=== PATIENT | male | born 1940 | race Caucasian/White ===

== ENCOUNTER 2016-11-19 17:24 | Inpatient (IN) | payer OTHER ==
[2016-11-19] MEDS ORDERED: ASPIRIN 81 MG CHEWABLE TAB PO ONE (17:34)
[2016-11-19] MEDS ORDERED: NS 500 ML IV ONE (17:34)
--- NOTE | 2016-11-19 17:34 | EDPHY ---
H & P Stated Complaint: CP + SOB since yest. HPI/ROS: HPI CHIEF COMPLAINT: Chest pain, shortness of breath HISTORY OF PRESENT ILLNESS: This patient very pleasant 75-year-old male significant past medical history for hypertension, hyperlipidemia, no significant history of coronary artery disease or underlying lung disease presents to the emergency room with 48 hours of dyspnea on exertion and profound shortness of breath. Patient then tells me that early this morning he developed a left-sided chest discomfort described as an achy sensation. After developing this achy sensation is left chest nonradiating with associated shortness of breath decided come to the emergency room. He does tell me that due to his shortness of breath he thought maybe he would benefit from Advair he took 2 different puffs of Advair which did not really help him. He does notice that he has had dyspnea on exertion especially when he goes to hike or walk. Tells me that he went for a short walk yesterday morning and had to stop multiple times to catch his breath. No history of PE or DVT. He tells me he has no significant leg swelling or calf tenderness. Currently upon arrival the emergency room he does complain of 4th 10 left- sided chest discomfort described as an achy sensation. Nonradiating. Past Medical History: Hypertension, hyperlipidemia Past Surgical History: Denies significant surgical history Social History: Denies daily use of drugs, alcohol, tobacco products Family History: Brother in IN ROS REVIEW OF SYSTEMS: A comprehensive 10 point review of systems is otherwise negative aside from elements mentioned in the history of present illness. Exam Constitutional triage nursing summary reviewed, vital signs reviewed, awake/ alert. Eyes normal conjunctivae and sclera, EOMI, PERRLA. HENT normal inspection, atraumatic, moist mucus membranes, no epistaxis, neck supple/ no meningismus, no raccoon eyes. Respiratory clear to auscultation bilaterally, normal breath sounds, no respiratory distress, no wheezing. Cardiovascular rate normal, regular rhythm, no murmur, no edema, distal pulses normal. Gastrointestinal soft, non-tender, no rebound, no guarding, normal bowel sounds, no distension, no pulsatile mass. Genitourinary no CVA tenderness. Musculoskeletal no midline vertebral tenderness, full range of motion, no calf swelling, no tenderness of extremities, no meningismus, good pulses, neurovascularly intact. Skin pink, warm, & dry, no rash, skin atraumatic. Neurologic awake, alert and oriented x 3, AAOx3, moves all 4 extremities equally, motor intact, sensory intact, CN II-XII intact, normal cerebellar, normal vision, normal speech. Psychiatric normal mood/affect. Heme/Lymph/Immune no lymphadenopathy. Differential diagnosis includes but is not limited to: ACS, atypical chest pain , pneumothorax, pneumonia, pulmonary embolism, aortic dissection, congestive heart failure, tumor, musculoskeletal pain, esophageal pain, GERD, peptic ulcer disease, pancreatitis Medical Decision Making: The patient had an IV established will obtain blood work, EKG will be performed, troponin, chest x-ray will be given full-dose aspirin, nitroglycerin to see if this improves his chest discomfort. D-dimer for rule out pulmonary embolism and chest x-ray. Re-evaluation: EKG interpretation by me on record in [facility] system. Impression time of EKG , this is sinus rhythm rate of 50, no acute ischemic changes specifically no ST elevation, ST depression, T-wave abnormality. No prolonged intervals, no signs of arrhythmia. Unremarkable EKG. ED x-ray chest one view: negative for acute cardiopulmonary disease. Specifically no focal infiltrate. 1853: Re-evaluation at this time is resting comfortably no complaints. Patient' s D-dimer is positive he is pending a CT angiogram of his chest. I did speak with the hospitalist service at this time Dr. Olivo who agrees to admit this patient for dyspnea on exertion, chest pain and shortness of breath. At this time of admission the patient is chest pain-free. CT scan of the Angiogram chest The results of the study are negative for pulmonary embolism The study was read by Dr. Ruiz I viewed the images myself on the PACS system. Source: Patient - Personal History Current Tetanus/Diphtheria Vaccine: Unsure Current Tetanus Diphtheria and Acellular Pertussis (TDAP): Unsure Tetanus Vaccine Date: unsure - Medical/Surgical History Hx Asthma: Yes Hx Chronic Respiratory Disease: No Hx Diabetes: No Hx Cardiac Disease: No Hx Renal Disease: No Hx Cirrhosis: No Hx Alcoholism: No Hx HIV/AIDS: No Hx Splenectomy or Spleen Trauma: No Other PMH: HTN. GERD. restless leg syndrome - Social History Smoking Status: Never smoked Constitutional: Initial Vital Signs Temperature (C) 36.8 C 11/19/16 17:26 Heart Rate 58 L 01/02/17 17:26 Respiratory Rate 14 11/19/16 17:26 Blood Pressure 154/79 H 11/19/16 17:26 O2 Sat (%) 95 11/19/16 17:26 O2 Delivery Mode Room Air O2 (L/minute) 2 Allergies/Adverse Reactions: No Known Allergies Allergy (Verified 04/22/16 16:50) Home Medications: Medication Instructions Recorded Escitalopram Oxalate [Lexapro 10 5 mg PO DAILY 09/22/13 MG] Omeprazole 20 mg PO DAILY 09/22/13 Pramipexole Di-HCl [Mirapex 0.25 0.25 mg PO HS 09/22/13 mg (*)] Aspirin EC [Aspirin EC 81 mg (*)] 81 mg PO DAILY 11/19/16 Atorvastatin Calcium [Lipitor 40 40 mg PO HS 11/19/16 mg (*)] Benazepril HCl [Lotensin] 40 mg PO HS 11/19/16 amLODIPine BESYLATE [Norvasc 10 mg 10 mg PO DAILY 11/19/16 (*)] Albuterol [Proventil Inhaler HFA 2 puffs IH Q4 PRN #0 mdi 11/21/16 (*)] Prasugrel HCl [Effient 10mg (*)] 10 mg PO DAILY #30 tab 11/21/16 Medical Decision Making - Data Points Laboratory Results: Laboratory Results 11/19/16 17:38 11/19/16 17:38 Medications Given: Discontinued Medications Amlodipine Besylate (Norvasc) 10 mg PO DAILY [facility] Stop: 05/19/17 08:59 Last Admin: 11/21/16 09:27 Dose: 10 mg Aspirin (Aspirin) 324 mg PO EDNOW ONE Stop: 11/19/16 17:35 Last Admin: 11/19/16 18:15 Dose: 324 mg Aspirin Buffered (Aspirin Ec) 81 mg PO DAILY JONATHAN Stop: 05/19/17 08:59 Last Admin: 11/21/16 09:36 Dose: 81 mg Aspirin Buffered (Aspirin Ec) 325 mg PO ONCALL ONE Stop: 11/20/16 10:14 Last Admin: 11/20/16 13:05 Dose: 325 mg Aspirin Buffered (Aspirin Ec) 325 mg PO ONCALL ONE Stop: 11/20/16 13:01 Last Admin: 11/20/16 17:02 Dose: Not Given Aspirin Buffered (Aspirin Ec) 325 mg PO DAILY [facility] Stop: 05/20/17 08:59 Last Admin: 11/21/16 09:31 Dose: Not Given Atorvastatin Calcium (Lipitor) 40 mg PO HS [facility] Stop: 05/18/17 20:59 Last Admin: 11/20/16 20:02 Dose: 40 mg Benazepril HCl (Lotensin) 40 mg PO HS [facility] Stop: 05/18/17 21:59 Last Admin: 11/20/16 20:02 Dose: 40 mg Diazepam (Valium) 5 mg PO ONCALL ONE Stop: 11/20/16 10:14 Last Admin: 11/20/16 13:05 Dose: 5 mg Diazepam (Valium) 5 mg PO ONCALL ONE Stop: 11/20/16 13:01 Last Admin: 11/20/16 17:02 Dose: Not Given Diphenhydramine HCl (Benadryl) 25 mg PO ONCALL ONE Stop: 11/20/16 10:14 Last Admin: 11/20/16 13:04 Dose: 25 mg Diphenhydramine HCl (Benadryl) 25 mg PO ONCALL ONE Stop: 11/20/16 13:01 Last Admin: 11/20/16 17:02 Dose: Not Given Escitalopram Oxalate (Lexapro) 5 mg PO DAILY [facility] Stop: 05/19/17 08:59 Last Admin: 11/21/16 09:27 Dose: 5 mg Famotidine (Pepcid) 20 mg PO ONCALL ONE Stop: 11/20/16 10:14 Last Admin: 11/20/16 13:05 Dose: 20 mg Famotidine (Pepcid) 20 mg PO ONCALL ONE Stop: 11/20/16 13:01 Last Admin: 11/20/16 17:02 Dose: Not Given Famotidine (Pepcid) 20 mg PO BID [facility] Stop: 05/19/17 20:59 Last Admin: 11/21/16 09:27 Dose: 20 mg Sodium Chloride (Ns) 500 mls @ 0 mls/hr IV ONCE ONE PRN Reason: As Directed Stop: 11/19/16 17:35 Last Admin: 11/19/16 18:20 Dose: 500 mls Dextrose/Sodium Chloride (D5w 1/2 Ns) 1,000 mls @ 125 mls/hr IV CONT JONATHAN Stop: 11/21/16 23:44 Last Admin: 11/21/16 04:58 Dose: 1,000 mls Nitroglycerin (Nitrostat) 0.4 mg SL EDNOW ONE Stop: 11/19/16 17:42 Last Admin: 11/19/16 18:24 Dose: 0.4 mg Pantoprazole Sodium (Protonix) 40 mg PO DAILY JONATHAN Stop: 05/19/17 08:59 Last Admin: 11/21/16 09:27 Dose: 40 mg Pramipexole Dihydrochloride (Mirapex) 0.25 mg PO TID JONATHAN Stop: 05/18/17 21:59 Last Admin: 11/19/16 20:00 Dose: 0.25 mg Pramipexole Dihydrochloride (Mirapex) 0.25 mg PO HS [facility] Stop: 05/19/17 20:59 Last Admin: 11/20/16 20:02 Dose: 0.25 mg Pramipexole Dihydrochloride (Mirapex) 0.25 mg PO ONCE ONE Stop: 11/20/16 16:31 Last Admin: 11/20/16 17:02 Dose: Not Given Prasugrel (Effient) 60 mg PO ONCE ONE Stop: 11/20/16 15:32 Last Admin: 11/20/16 17:03 Dose: Not Given Prasugrel (Effient) 10 mg PO DAILY [facility] Stop: 05/20/17 08:59 Last Admin: 11/21/16 09:28 Dose: 10 mg Departure - Departure Disposition: [facility] Acute Clinical Impression: Chest pain, Dyspnea Condition: Fair
[2016-11-19] MEDS ORDERED: NITROGLYCERIN 0.4 MG BTL SL ONE (17:41)
--- NOTE | 2016-11-19 17:45 | CPEKG ---
Heart Rate: 50 RR Interval: 1200 P-R Interval: 184 QRSD Interval: 94 QT Interval: 452 QTC Interval: 413 P [place]: 43 QRS [place]: -1 T Wave [place]: 56 EKG Severity - NORMAL ECG - EKG Impression: SINUS RHYTHM Electronically Signed By: Frandy Resendiz 19-Nov-2016 21:18:04
[2016-11-19 17:50] LABS: % IMMATURE GRANULYOCYTES 0.4 % (0.0-1.1); ABSOLUTE IMMATURE GRANULOCYTES 0.03 10^3/uL (0.00-0.10); ADD DIFF? NO; ADD MORPH? NO; ADD SCAN? NO; ATYPICAL LYMPHOCYTE FLAG 10 (0-99); FRAGMENT RBC FLAG 0 (0-99); HEMATOCRIT 43.8 % (40.0-51.0); HEMOGLOBIN 15.2 g/dL (13.7-17.5); LEFT SHIFT FLG 0 (0-99); LIPEMIA HEMOLYSIS FLAG 90 (0-99); MEAN CELL HEMOGLOBIN 32.3 pg (27.9-34.1); MEAN CELL HEMOGLOBIN CONCENTR. 34.7 g/dL (32.4-36.7); MEAN CELL VOLUME 93.2 fL (81.5-99.8); MEAN PLATELET VOLUME 9.1 fL (8.7-11.7); PLATELET CLUMPS FLAG 0 (0-99); PLATELET COUNT 223 10^3/uL (150-400); RED CELL DISTRIBUTION WIDTH 12.9 % (11.5-15.2)
[2016-11-19 17:58] LABS: INR 1.06 (0.83-1.16); PROTIME(PATIENT) 13.7 SEC (12.0-15.0)
[2016-11-19 18:03] LABS: ALANINE AMINOTRANSFERASE 40 IU/L (21-72); ALBUMIN 4.6 g/dL (3.5-5.0); ALKALINE PHOSPHATASE 75 IU/L (38-126); ANION GAP 11 mEq/L (8-16); ASPARTATE AMINOTRANSFERASE 29 IU/L (17-59); BILIRUBIN-CONJUGATED 0.5 mg/dL (0.0-0.5); BILIRUBIN-UNCONJUGATED 0.5 mg/dL (0.0-1.1); CALCIUM 9.2 mg/dL (8.5-10.4); CARBON DIOXIDE 28 mEq/l (22-31); CHLORIDE 102 mEq/L (97-110); CREATININE 0.8 mg/dL (0.7-1.3); GLOMERULAR FILTRATION RATE > 60; GLUCOSE 89 mg/dL (70-100); POTASSIUM 3.9 mEq/L (3.5-5.2); SODIUM 141 mEq/L (134-144); TOTAL PROTEIN 7.1 g/dL (6.3-8.2)
--- NOTE | 2016-11-19 18:13 | DX ---
Portable chest x-ray 1754 hours. History: Chest pain with shortness of breath. Findings: Comparison to January 19, 2015 CT study. Comparison to chest x-ray from November 16, 2014. Heart size remains borderline enlarged. Pulmonary vasculature is mildly prominent centrally similar t o the prior study. There is mild elevation left hemidiaphragm. This is stable to the prior CT study. There is mild compressive atelectatic change at the left lung base. There is no new consolidation, ef fusion, or pneumothorax. Osseous structures are unchanged. Impression: 1. Mild elevation left hemidiaphragm with compressive atelectatic change left base. 2. No active cardio pulmonary disease seen.
[2016-11-19 18:15] LABS: CREATINE KINASE-MB FRACTION 2.12 ng/mL (0-3.19); TROPONIN I 0.016 ng/mL (0-0.034)
[2016-11-19] MEDS ORDERED: IOPAMIDOL (ISOVUE 370) 100 ML BTL IV ONE (19:10)
--- NOTE | 2016-11-19 20:09 | CT ---
CT Pulmonary Angiogram 1924 hours Clinical Indications: Chest pain with shortness of breath. Positive d-dimer paired rule out pulmonary embolus. Technique: Thinly collimated multidetector helical CT imaging was performed through the chest while 75 mL Isovue-370 were injected intravenously without complication. The images were reconstructed in multiple planes. Dose reduction techniques were utilized. Findings: Comparison to prior CT study from January 19, 2015. CT Angiogram: There is no evidence of intraluminal thrombus within the pulmonary arterial system. Th e thoracic aorta has a normal contour without evidence of aneurysm or dissection. There are some sca ttered arteriosclerotic calcified plaques at the aortic arch level. Arteriosclerotic calcified plaque s are also seen associated with the coronary arteries. The cardiac chambers are mildly enlarged. Ther e is no pericardial effusion. CT Chest: The lungs are clear without infiltrate or effusion. There are no pulmonary nodules. There is stable mild elevation of left hemidiaphragm with adjacent compressive atelectatic change at the le ft lung base. Soft tissues are unremarkable. The visualized upper abdominal structures are unremark able during arterial phase of imaging. Skeletal system: Vertebral body heights are well-maintained. There are no lytic or sclerotic osseous lesions. Hypertrophic calcifications are seen along the anterior and right lateral aspect of mid to l ower thoracic spine vertebral body segments compatible with underlying diffuse idiopathic skeletal hy perostosis (DISH). Impression: 1. No evidence of pulmonary embolus using CT protocol. 2. Arteriosclerotic calcifications associated with the coronary arteries and aortic arch. 3. Mild cardiomegaly. 4. DISH mid to lower thoracic spine. These findings were discussed by telephone with Dr. Frandy Resendiz at 2007 hrs.
[2016-11-19] MEDS ORDERED: ACETAMINOPHEN 325 MG TAB PO PRN (20:16)
[2016-11-19] MEDS ORDERED: ONDANSETRON DISINTEGRATING 4 MG TAB PO PRN (20:16)
[2016-11-19] MEDS ORDERED: NITROGLYCERIN 0.4 MG BTL SL PRN (20:16)
--- NOTE | 2016-11-19 21:20 | GHP ---
[f rep st] HISTORY AND PHYSICAL DATE OF ADMISSION: 11/19/2016 CHIEF COMPLAINT: Shortness of breath. HISTORY OF PRESENT ILLNESS: The patient is a 75-year-old man with a history of hypertension and dysl ipidemia, who comes in with increasing dyspnea on exertion. He had similar symptoms about a year ago and was seen by Dr. Gar. At that time, a nuclear stress test and echocardiogram were done that were fairly unremarkable. He was then referred to Dr. Bryson Venegas, who diagnosed him with asthma an d prescribed Advair and albuterol inhaler. He has not really been consistent in taking the inhalers. In fact, he has not taken the Advair at all. About 2 weeks ago, he started noting increasing short ness of breath and dyspnea on exertion. He noticed it mostly when he walked up 1 flight of stairs, w hich was unusual for him, and walking outside. He said, yesterday he walked about a mile and a half with his and had to stop 4 times to catch his breath, which was unusual for him. He also noted that he got some chest soreness on the left side of his ribcage that was not necessarily associated w ith exertion. It did not radiate. It was not associated with dizziness, diaphoresis, palpitations, or nausea. This morning, he was walking about 100 yards and had to rest several times and continued to have the chest soreness, so he opted to come into the emergency room after consulting with his latrice saniya who is a local electrophysiology nurse practitioner in [facility]. He did start taking his Advair last night, and then took it last night and this morning and did not notice any difference. He does take the albuterol as needed and takes it almost on a daily basis. He says he takes it before he goes to the gym, in which case h obed rides a stationary bike about 3 days a week, and has not noted significant increasing dyspnea on ex ertion with that activity. He has had a little bit of swelling and was recently started on spironola ctone, but developed some gynecomastia, so stopped that about a month ago. He denies any recent weig ht changes, fevers, chills, or illnesses. REVIEW OF SYSTEMS: A 10-point review of systems was done and is negative except as stated in HPI. PAST MEDICAL HISTORY: 1. Hypertension. 2. Dyslipidemia. 3. Reactive airways disease. 4. GE reflux disease. 5. Obstructive sleep apnea, on CPAP. 6. Restless legs. PAST SURGICAL HISTORY: Includes a right total knee replacement and left ankle surgery x2. CURRENT MEDICATIONS: Include Lipitor 40 mg, Norvasc 10 mg, omeprazole 20 mg, Mirapex 0.25 at night, benazepril 40 mg, Advair, and Proair. ALLERGIES: No known drug allergies. SOCIAL HISTORY: He is . He has 3 kids. He does not smoke and occasionally drinks beer. FAMILY HISTORY: Mother had heart failure. Father and most of the father's side of the family had [facility]. He had a brother who had an KS 5 years ago and, prior to that, had stents placed; he eventual ly from pancreatic cancer. A sister who is relatively healthy. PHYSICAL EXAMINATION: VITAL SIGNS: He is afebrile. Heart rate 51, blood pressure 144/90, respirati ons 14. HE is 92% on room air. GENERAL: He is a well-developed, well-nourished 75-year-old. He is in no distress. He is alert and oriented. Speech is clear and fluent. HEENT: Pupils equal, roun d, and reactive. Extraocular movements intact. Mucous membranes moist. Oropharynx clear. NECK: S upple. No adenopathy. No carotid bruits. HEART: Regular rate and rhythm. No murmur, gallop or ru b. LUNGS: Clear to auscultation. Slightly diminished breath sounds bilaterally, but no wheeze, rho nchi or rub. ABDOMEN: Soft, nontender, nondistended. No masses. EXTREMITIES: Trace edema bilater ally. No clubbing or cyanosis. MUSCULOSKELETAL: No joint deformities, except on his left ankle. N EUROLOGIC: Intact. SKIN: Intact. No rash. LABORATORY DATA: CBC and chemistries are all within normal limits. D-dimer slightly elevated at 1.8 . LFTs are normal. BNP is negative, and troponin is negative. Chest x-ray, personally reviewed and interpreted, was normal. Electrocardiogram, personally reviewed and interpreted, shows bradycardia. Chest and thoracic CT angiogram shows no evidence of PE, but atherosclerotic calcifications associat ed with the coronary arteries and aortic arch. ASSESSMENT AND PLAN: 75-year-old with hypertension, dyslipidemia, and some calcifications noted in h is coronary arteries, is admitted with increasing dyspnea on exertion and some chest discomfort. EKG and troponins are negative for ischemia. 1. Dyspnea on exertion/chest pressure. Patient has had a recent workup with Dr. Jean-Paul Gar of [facility], including a nuclear stress test and echocardiogram that apparently were unreveal ing. However, I did discuss the case in detail with Dr. Dawood Gar, who will see him in the a.m.; h e requests we keep him n.p.o. after midnight for possible procedure depending on his course overnight , and he will decide on further evaluation in the a.m. 2. Hypertension, slightly elevated here. We will continue his usual medications and monitor. 3. Dyslipidemia, on atorvastatin. 4. History of reactive airways disease. Has seen Dr. Bryson Venegas and is on Advair and albuterol; w ill continue those. 5. Gastroesophageal reflux disease, on Prilosec. 6. Obstructive sleep apnea, on CPAP. 7. Deep venous thrombosis prophylaxis. Patient is under observation status and, if he has an extend ed stay, we will start him on low-molecular weight heparin at that point. /[id number]/MODL
[2016-11-19] MEDS ORDERED: PRAMIPEXOLE 0.25 MG TAB PO SCH (22:00)
--- NOTE | 2016-11-19 22:23 | CPEKG ---
Heart Rate: 52 RR Interval: 1154 P-R Interval: 196 QRSD Interval: 94 QT Interval: 452 QTC Interval: 421 P [place]: 49 QRS [place]: 5 T Wave [place]: 63 EKG Severity - NORMAL ECG - EKG Impression: SINUS RHYTHM Electronically Signed By: David Bah 19-Nov-2016 23:07:54
[2016-11-19] MEDS: ATORVASTATIN CALCIUM 40 MG TAB PO SCH (22:47)
[2016-11-19] MEDS: BENAZEPRIL HCL 20 MG TAB PO SCH (22:47)
[2016-11-20] MEDS: PANTOPRAZOLE SODIUM 40 MG TAB PO SCH (08:26)
[2016-11-20] MEDS: ESCITALOPRAM OXALATE 10 MG TAB PO SCH (08:26)
[2016-11-20] MEDS: ASPIRIN EC 81 MG TAB PO SCH (08:28)
--- NOTE | 2016-11-20 08:56 | CPEKG ---
Heart Rate: 42 RR Interval: 1429 P-R Interval: 200 QRSD Interval: 94 QT Interval: 508 QTC Interval: 425 P [place]: 44 QRS [place]: 22 T Wave [place]: 49 EKG Severity - OTHERWISE NORMAL ECG - EKG Impression: SINUS BRADYCARDIA Electronically Signed By: Florencio Weston 20-Nov-2016 21:15:56
--- NOTE | 2016-11-20 09:13 | CPEKG ---
Heart Rate: 52 RR Interval: 1154 P-R Interval: 196 QRSD Interval: 94 QT Interval: 440 QTC Interval: 410 P [place]: 9 QRS [place]: 55 T Wave [place]: -20 EKG Severity - BORDERLINE ECG - EKG Impression: SINUS RHYTHM Electronically Signed By: Florencio Weston 20-Nov-2016 21:16:20
[2016-11-20] MEDS ORDERED: diphenhydrAMINE 25 MG CAP PO ONE ×2 (10:13→13:00)
[2016-11-20] MEDS ORDERED: DIAZEPAM 5 MG TAB PO ONE ×2 (10:13→13:00)
[2016-11-20] MEDS ORDERED: TEMAZEPAM 15 MG CAP PO PRN ×2 (10:13→15:31)
[2016-11-20] MEDS ORDERED: FAMOTIDINE 20 MG TAB PO ONE ×2 (10:13→13:00)
[2016-11-20] MEDS ORDERED: ACETAMINOPHEN 325 MG TAB PO PRN (10:13)
[2016-11-20] MEDS ORDERED: ASPIRIN EC 325 MG TAB PO ONE ×2 (10:13→13:00)
[2016-11-20] MEDS ORDERED: NITROGLYCERIN 0.4 MG BTL SL PRN ×2 (10:13→15:31)
--- NOTE | 2016-11-20 10:28 | PDCARCONS ---
Cardiology Consult Reason for Consult: Progressive dyspnea on exertion and chest pain Chief Complaint: Progressive shortness of breath and chest pain Requesting Physician: Dr. Brenda Olivo History of Present Illness: 75 y/o M well known to our practice with known CAD by Ca score, HTN, hyperlipidemia, strong family history of CAD, history of non-sustained VT who presented to ED yesterday with 2 weeks of progressive dyspnea on exertion and new onset of left-sided chest discomfort. He has developed limiting dyspnea with one flight of stairs and now cannot walk more than 100 yards without having to stop. These symptoms are worse than his previous complaints of dyspnea back in August 2014. In the interim he had been diagnosed with asthma and prescribed daily Advair which he never really took. He has restarted his Advair as of 2 days ago with no improvement in his symptoms. He does use an albuterol inhaler almost daily and before exercise which thinks improves his symptoms slightly. He does not have shortness of breath at rest. Starting two days ago he developed a left-sided chest "soreness" without radiation or associated lightheadedness, nausea, or diaphoresis. It does not seem to be related to exertion and had been relatively constant until it resolved yesterday afternoon. He has been followed closely in our office for risk factor management. He states that his BP has been mostly well-controlled on his current medication regimen. He underwent nuclear stress testing and echocardiogram in May 2016 that were unremarkable. Laboratory studies this admission are unremarkable. D-dimer was positive with subsequent chest CTA negative for pulmonary embolic disease. 12 lead EKGs are non-acute. Troponins are negative x 3. BNP is stable at 490. HRs have consistently been in the 40s bpm with frequent PVCs, no pauses. Prior ambulatory EKG monitors from 2 years ago show average HRs in the mid to high 50s bpm. We are asked to consult on Mr. Newberry to assess his symptoms and recommend further diagnostic testing regarding his newly worsening shortness of breath and chest discomfort. History Information - Allergies/Home Medication List Allergies/Adverse Reactions: No Known Allergies Allergy (Verified 04/22/16 16:50) Home Medications: Escitalopram Oxalate [Lexapro 10 MG (RX)] 5 mg PO DAILY 09/22/13 [Last Taken 01/04] Omeprazole 20 mg PO DAILY 09/22/13 [Last Taken 11/19/16] Pramipexole Di-HCl [Mirapex 0.25 mg (RX)] 0.25 mg PO HS 09/22/13 [Last Taken 12/04] Aspirin EC [Aspirin EC 81 mg (*)] 81 mg PO DAILY 11/19/16 [Last Taken 11/19/16] Atorvastatin Calcium [Lipitor 40 mg (*)] 40 mg PO HS 11/19/16 [Last Taken ] Benazepril HCl [Lotensin] 40 mg PO HS 11/19/16 [Last Taken 11/18/16] amLODIPine BESYLATE [Norvasc 10 mg (*)] 10 mg PO DAILY 11/19/16 [Last Taken 01/04] I have personally reviewed and updated: family history, medical history Past Medical History: See assessement - Past Medical History coronary artery disease, hypertension, hyperlipidemia - Surgical History Reports: no pertinent surgical hx - Family History Positive for: CAD - Social History Smoking Status: Never smoked Drug Use: None Cardiac History - Cardiac History Past Cardiac History: CAD, OTHER (non-sustained VT) Cardiac Risk Factors: hypertension (>140/90), lipidemia, family history of premature CAD, age > 65, male Physical Exam Temp Pulse Resp BP Pulse Ox 36.6 C 47 L 18 150/81 H 94 11/20/16 08:12 11/20/16 08:12 11/20/16 08:12 11/20/16 08:28 11/20/16 08:36 O2 (L/minute) 2 Constitutional: no apparent distress, appears nourished, not in pain Cardiovascular: regular rate and rhythym, no murmur, rub, or gallop, No edema Peripheral Pulses: 1+: dorsalis-pedis (R), dorsalis-pedis (L) Respiratory: no respiratory distress, no rales or rhonchi, clear to auscultation Gastrointestinal: normoactive bowel sounds, soft, non-tender abdomen, no palpable masses Neurologic: AAOx3, sensation intact bilaterally, CN II-XII Intact Psychiatric: interacting appropriately, not anxious, not encephalopathic, thought process linear Lab and Imaging 11/19/16 17:38 11/19/16 17:38 WBC 7.76 10^3/uL (3.80-9.50) 11/19/16 17:38 RBC 4.70 10^6/uL (4.40-6.38) 11/19/16 17:38 Hgb 15.2 g/dL (13.7-17.5) 11/19/16 17:38 Hct 43.8 % (40.0-51.0) 11/19/16 17:38 MCV 93.2 fL (81.5-99.8) 11/19/16 17:38 MCH 32.3 pg (27.9-34.1) 11/19/16 17:38 MCHC 34.7 g/dL (32.4-36.7) 11/19/16 17:38 RDW 12.9 % (11.5-15.2) 11/19/16 17:38 Plt Count 223 10^3/uL (150-400) 11/19/16 17:38 MPV 9.1 fL (8.7-11.7) 11/19/16 17:38 Neut % (Auto) 57.7 % (39.3-74.2) 11/19/16 17:38 Lymph % (Auto) 26.4 % (15.0-45.0) 11/19/16 17:38 [place] % (Auto) 11.0 % (4.5-13.0) 11/19/16 17:38 Eos % (Auto) 4.4 % (0.6-7.6) 11/19/16 17:38 Baso % (Auto) 0.1 % (0.3-1.7) L 11/19/16 17: Nucleat RBC Rel Count 0.0 % (0.0-0.2) 11/19/16 17:38 Absolute Neuts (auto) 4.48 10^3/uL (1.70-6.50) 11/19/16 17:38 Absolute Lymphs (auto) 2.05 10^3/uL (1.00-3.00) 11/19/16 17:38 Absolute Monos (auto) 0.85 10^3/uL (0.30-0.80) H 11/19/16 17:38 Absolute Eos (auto) 0.34 10^3/uL (0.03-0.40) 11/19/16 17:38 Absolute Basos (auto) 0.01 10^3/uL (0.02-0.10) L 11/19/16 17:38 Absolute Nucleated RBC 0.00 10^3/uL (0-0.01) 11/19/16 17:38 Immature Gran % 0.4 % (0.0-1.1) 11/19/16 17:38 Immature Gran # 0.03 10^3/uL (0.00-0.10) 11/19/16 17:38 PT 13.7 SEC (12.0-15.0) 11/19/16 17:38 INR 1.06 (0.83-1.16) 11/19/16 17:38 APTT 31.0 SEC (23.0-38.0) 11/19/16 17:38 D-Dimer 1.80 ug/mLFEU (0.00-0.50) H 11/19/16 17:38 Sodium 141 mEq/L (134-144) 11/19/16 17:38 Potassium 3.9 mEq/L (3.5-5.2) 11/19/16 17:38 Chloride 102 mEq/L (97-110) 11/19/16 17:38 Carbon Dioxide 28 mEq/l (22-31) 11/19/16 17:38 Anion Gap 11 mEq/L (8-16) 11/19/16 17:38 BUN 20 mg/dL (7-23) 11/19/16 17:38 Creatinine 0.8 mg/dL (0.7-1.3) 11/19/16 17:38 Estimated GFR > 60 11/19/16 17:38 Glucose 89 mg/dL (70-100) 11/19/16 17:38 Calcium 9.2 mg/dL (8.5-10.4) 11/19/16 17:38 Magnesium 2.0 mg/dL (1.6-2.3) 11/19/16 17:38 Total Bilirubin 1.0 mg/dL (0.1-1.4) 11/19/16 17:38 Conjugated Bilirubin 0.5 mg/dL (0.0-0.5) 11/19/16 17:38 Unconjugated Bilirubin 0.5 mg/dL (0.0-1.1) 11/19/16 17:38 AST 29 IU/L (17-59) 11/19/16 17:38 ALT 40 IU/L (21-72) 11/19/16 17:38 Alkaline Phosphatase 75 IU/L (38-126) 11/19/16 17:38 Creatine Kinase 89 IU/L (0-224) 11/19/16 17:38 CK-MB (CK-2) Fraction 2.12 ng/mL (0-3.19) 11/19/16 17:38 Troponin I 0.022 ng/mL (0-0.034) 11/20/16 08:59 NT-Pro-B Natriuret Pep 490 pg/mL (0-125) H 11/19/16 17:38 Total Protein 7.1 g/dL (6.3-8.2) 11/19/16 17:38 Albumin 4.6 g/dL (3.5-5.0) 11/19/16 17:38 Lipase 43.0 IU/L (23-300) 11/19/16 17:38 A/P Assessment: 1. Progressive and limiting dyspnea on exertion. He has a history of these symptoms in 2013 with untelling outpatient cardiac workup. Recent nuclear imaging and echocardiography from May 2016 were untelling as well. Due to known CAD, history of VT, multiple cardiovascular risk factors there is high suspicion for unstable angina. 2. Positive D-dimer and negative CT angiogram for PE. 3. Known CAD by Ca score. Troponins are negative x 3. 4. Sinus bradycardia, persistently in the 40s bpm. This appears to be progressive as well c/t prior ambulatory EKG monitors. He is not on av girma blockers. He was able to reach a max HR of 138 bpm on his stress test this past summer. 5. Suboptimally controlled HTN on current medication regimen. 6. Hyperlipidemia treated w/ atorvastatin 40 mg/d. 7. Family history of CAD/MO in brother. 8. History of non-sustained VT. 9. Asthma followed by Dr. Bryson Venegas. 10. AI treated w/ CPAP. Plan: 1. Keep NPO. 2. Right and left heart catheterization this afternoon with Dr. Gar. Risks, benefits, and alternative workup discussed. 3. Check TSH due to persistent bradycardia and shortness of breath. 4. If cath is untelling consider repeating workup for chronotropic incompetence.
[2016-11-20 11:06] LABS: CHOLESTEROL 140 mg/dL (140-220); CHOLESTEROL/HDL RATIO 2.26 RATIO (1.00-4.97); HIGH DENSITY LIPOPROTEIN 62 mg/dL (40-65); LDL/HDL RATIO 1.15 RATIO (1.00-3.64); LOW DENSITY LIPOPROTEIN 71 mg/dL (80-100); NON-HIGH DENSITY LIPOPROTEIN 78 mg/dL (90-129); TRIGLYCERIDE 37 mg/dL (40-150); VERY LOW DENSITY LIPOPROTEINS 7 mg/dL (8-25)
[2016-11-20] MEDS ORDERED: LIDOCAINE 1% 30 ML SDV ONE (13:30)
[2016-11-20] MEDS ORDERED: MIDAZOLAM 2 MG/2 ML VIAL ONE ×2 (13:30→14:58)
[2016-11-20] MEDS ORDERED: fentaNYL 100 MCG/2 ML INJ ONE ×2 (13:30→15:18)
[2016-11-20] MEDS ORDERED: IOPAMIDOL (ISOVUE 370) 100 ML BTL IV ONE ×2 (13:31→14:53)
[2016-11-20] MEDS ORDERED: VERAPAMIL 5 MG/2 ML VIAL ONE ×2 (13:31→14:40)
[2016-11-20] MEDS ORDERED: HEPARIN 10,000 UNIT/10 ML MDV ONE (13:31)
--- NOTE | 2016-11-20 14:24 | SUROPNOTE ---
[facility] Operative Report - Surgery Date of Procedure: 11/20/2016 Indication: This patient is a 75 year old man, with known coronary artery disease by calcium score, hypertension, hyperlipidemia, strong family history of coronary disease, history of nonsustained VT, asthma, and AI on CPAP, presenting with two weeks of quickly progressive and limiting dyspnea on exertion, as well as new onset left-sided chest discomfort two days ago which occurred at rest. Due to known CAD, multiple risk factors, and history of VT, these symptoms are concerning for unstable angina. Right/left heart catheterization indicated secondary to [place] cardiovascular class IV angina. Procedures performed: 1. Right and Left heart catheterization with left ventricular and selective coronary angiography. 2. Intravascular ultrasound imaging, balloon angioplasty for pre-dilation, and intracoronary stent placement x1 in the right coronary artery. Description of procedure: Description, risks, benefits and alternatives were discussed in detail. Informed consent was obtained. The patient was brought to the catheterization laboratory where a timeout was performed. The right arm was sterilely prepped and draped. 2% lidocaine utilized for local anesthetic. A 5-Haitian hemostatic sheath was placed in the right brachial vein utilizing the IV site already present. A 5-Haitian PWP catheter was utilized for right heart catheterization. Following the right heart catheterization, a5/6-Haitian slender hemostatic sheath placed right radial artery utilizing micropuncture technique. Intraarterial verapamil and intravenous heparin was administered. Diagnostic coronary angiography performed with 6-Haitian, Lilly left-3.5 and Lilly right -4 catheter. All catheters were passed over a 0.035 guidewire. Pigtail catheter was then utilized for left heart catheterization and left ventricular angiography. There appears to be an 80% hazy appearing eccentric lesion in the proximal right coronary artery by angiography. Plan to perform intravascular ultrasound imaging in the right coronary artery. A 6-Haitian Lilly right-4 guide catheter was utilized to engage the right coronary artery. A short [place] J was placed in the right coronary artery across the lesion. Ultrasound catheter was placed, however catheter would initially not cross the lesion. A 0.014in x 190cm [place] straight tip guidewire was utilized as a "art wire" to help guide the ultrasound catheter. Intravascular ultrasound imaging was performed to assess lesion length, and reference vessel diameter. This demonstrated a heavily calcified, eccentric 75% stenosis in the proximal right coronary artery. Intracoronary nitroglycerin and verapamil was administered. The [place] wire was utilized for the percutaneous intervention. A 3.5mm x 12mm Emerge balloon was positioned in the proximal right coronary artery for pre-dilation, inflated to 14 atmospheres. A 4.0mm x 20mm Synergy drug-eluding stent was carefully positioned to cover the proximal lesion. This was deployed to 18 atmospheres. A 4.5mm x 12mm [place] Emerge balloon was utilized for high-pressure post-dilation, however could not appropriately maneuver into the correct position. Instead a 4.5mm x 8mm Coleman balloon was utilized for 3 inflations to a maximum of 13 atmospheres. Further intracoronary nitroglycerin and verapamil was administered. Repeat intravascular ultrasound imaging was attempted, however ultrasound catheter would not cross due to extreme tortuosity and angle. There was excellent result confirmed by angiography, with 0% residual stenosis. Arterial sheath was removed and TR band was placed. Venous sheath was removed in the CVC. Findings: 1. Hemodynamics: Right atrial pressure mean of 7, right ventricular pressure 54 /6/13 end-diastolic, pulmonary artery pressure 52/15, mean of 30, pulmonary capillary wedge pressure mean of 15 with no significant V wave. Aortic pressure 160/86, mean of 114, left ventricular pressure 150/8/20 end-diastolic. There was no pull back gradient across the aortic valve. 2. Saturations: Superior vena cava 82.6%, main pulmonary artery 70.4%, Ao 91.9% . Assumed [place] cardiac output 4.8 L/min with cardiac index of 2.4L/min/m2. 2. Left ventricle: The left ventricle appears normal in size. Left ventricle is normal shape. Segmental wall motion is normal with an ejection fraction of 55 %. There are no filling defects or significant mitral regurgitation. The aortic root and ascending aorta appears normal, there is no dissection or aneurysm formation. 3. Coronary angiography: Left main: The left main is a very large diameter, very short bifurcating vessel, free of disease. 4. Left anterior descending: This is a moderately large vessel continuing around the apex. There is a moderate size first diagonal branch, a moderately large bifurcating second diagonal branch, and a small third diagonal branch. The LAD has mid 30% luminal irregularities and a distal tubular 50% stenosis with mild systolic compression. 5. Circumflex: The circumflex is a co-dominant vessel. There is a moderate first obtuse marginal branch, small second obtuse marginal branch, and a large posterolateral branch. The circumflex contains 20% luminal irregularities, no significant stenoses. 6. Right coronary: Large co-dominant vessel. Large posterior descending artery. The proximal right coronary artery contains an 80% hazy appearing eccentric lesion by angiography. By intravascular ultrasound imaging, this is a heavily calcified lesion (360 degrees), with eccentric 75% stenosis. 7. Percutaneous intervention. Guided by intravascular ultrasound imaging and angiography, the proximal right coronary heavily calcified 75% eccentric stenosis was treated with balloon angioplasty pre-dilation, intracoronary stent placement x1, and high pressure post-dilation, with excellent result confirmed by angiography. Overall Impression: 1. Moderate pulmonary hypertension and elevated resting right heart hemodynamics. 2. 75% eccentric heavily calcified stenosis in the proximal right coronary artery, treated with balloon angioplasty pre-dilation, intracoronary stent placement x1, and high pressure post-dilation, with excellent result confirmed by angiography. 3. Otherwise mild-moderate coronary artery disease. 4. Normal left ventricular systolic function with ejection fraction of 55%. Plan: 1. Dual anti-platelet therapy. Will start with Effient and aspirin. 2. Plavix genetic testing. 3. High dose statin therapy and aggressive risk modification. 4. Follow up with Dr. Bryson Venegas for evaluation of pulmonary hypertension and evaluate treatment of the patient's asthma and obstructive sleep apnea. 5. Consider repeat high-resolution chest CT. 6. Close clinical follow up. Portions of this chart were entered by a scribe. I have reviewed this chart and agree with the documentation. Report scribed for Dr. Dalton Gar. Report scribed by Amber Toro.
[2016-11-20] MEDS ORDERED: NITROGLYCERIN 1,500 MCG/15 ML VIAL MISC ONE (14:40)
[2016-11-20] MEDS ORDERED: PRASUGREL HCL 10 MG TAB ONE (15:09)
[2016-11-20] MEDS ORDERED: OXYCODONE/APAP 5/325 TAB PO PRN (15:31)
[2016-11-20] MEDS ORDERED: HYDROCODONE/APAP 5/325 TAB PO PRN (15:31)
[2016-11-20] MEDS ORDERED: ATROPINE SULFATE 1 MG/10 ML SYR IVP PRN (15:31)
[2016-11-20] MEDS ORDERED: PRASUGREL HCL 10 MG TAB PO ONE (15:31)
[2016-11-20] MEDS ORDERED: ONDANSETRON 4 MG/2 ML VIAL IVP PRN (15:31)
[2016-11-20] MEDS ORDERED: LORazepam 2 MG/ML INJ IVP PRN (15:31)
--- NOTE | 2016-11-20 15:56 | CPEKG ---
Heart Rate: 57 RR Interval: 1053 P-R Interval: 184 QRSD Interval: 96 QT Interval: 448 QTC Interval: 437 P [place]: 45 QRS [place]: 13 T Wave [place]: 46 EKG Severity - ABNORMAL ECG - EKG Impression: SINUS RHYTHM EKG Impression: PAC AND PVC NOTED Electronically Signed By: Florencio Weston 20-Nov-2016 21:15:46
--- NOTE | 2016-11-20 16:24 | HOSPPROG ---
Hospitalist Progress Note Assessment/Plan: 75 y/o male new to my care presenting with Dyspnea on exertion found to have #CAD prox right coronary artery treated with drug eluding stent #pulm hypertension #htn #dyslipidemia #h/o reactive airway disease #AI #GERD Plan continue post cath care per cards asa/plavix out pt followup with pulm to further address pulm htn dispo: change to inpatient status given pci showing cad requiring stent Subjective: no chest pain or sob Objective: Vital Signs Temp Pulse Resp BP Pulse Ox 36.6 C 49 L 18 148/76 H 95 11/20/16 08:12 11/20/16 11:18 11/20/16 11:18 11/20/16 11:18 11/20/16 11:18 11/19/16 11/20/16 11/21/16 05:59 05:59 05:59 Intake Total 500 Balance 500 PT 13.7 SEC (12.0-15.0) 11/19/16 17:38 INR 1.06 (0.83-1.16) 11/19/16 17:38 - Physical Exam Constitutional: no apparent distress, appears nourished, not in pain Cardiovascular: regular rate and rhythym, no murmur, rub, or gallop Respiratory: no respiratory distress, no rales or rhonchi, clear to auscultation Gastrointestinal: normoactive bowel sounds, soft, non-tender abdomen, no palpable masses Neurologic: AAOx3, sensation intact bilaterally ICD10 Worksheet Patient Problems: Problems Problem Status Diagnosed Chest pain Acute Dyspnea Acute Osteoarthritis of ankle Acute
[2016-11-20] MEDS ORDERED: PRAMIPEXOLE 0.25 MG TAB PO ONE (16:30)
[2016-11-20] MEDS: D5W 1/2 NS 1,000 ML IV SCH (19:58)
[2016-11-20] MEDS: BENAZEPRIL HCL 20 MG TAB PO SCH (20:02)
[2016-11-20] MEDS: FAMOTIDINE 20 MG TAB PO SCH (20:02)
[2016-11-20] MEDS: ATORVASTATIN CALCIUM 40 MG TAB PO SCH (20:02)
[2016-11-20] MEDS ORDERED: ALBUTEROL 60 PUFFS/8 GM MDI IH PRN (20:30)
[2016-11-20] MEDS ORDERED: PRAMIPEXOLE 0.25 MG TAB PO SCH (21:00)
[2016-11-21 04:22] VITALS: O2SAT 98
[2016-11-21] MEDS: D5W 1/2 NS 1,000 ML IV SCH (04:58)
[2016-11-21 05:01] LABS: % IMMATURE GRANULYOCYTES 0.3 % (0.0-1.1); ABSOLUTE IMMATURE GRANULOCYTES 0.02 10^3/uL (0.00-0.10); ADD DIFF? NO; ADD MORPH? NO; ADD SCAN? NO; ATYPICAL LYMPHOCYTE FLAG 10 (0-99); FRAGMENT RBC FLAG 0 (0-99); HEMATOCRIT 41.4 % (40.0-51.0); HEMOGLOBIN 14.4 g/dL (13.7-17.5); LEFT SHIFT FLG 0 (0-99); LIPEMIA HEMOLYSIS FLAG 90 (0-99); MEAN CELL HEMOGLOBIN 32.8 pg (27.9-34.1); MEAN CELL HEMOGLOBIN CONCENTR. 34.8 g/dL (32.4-36.7); MEAN CELL VOLUME 94.3 fL (81.5-99.8); MEAN PLATELET VOLUME 9.3 fL (8.7-11.7); PLATELET CLUMPS FLAG 0 (0-99); PLATELET COUNT 204 10^3/uL (150-400); RED BLOOD CELL COUNT 4.39 10^6/uL (4.40-6.38)
[2016-11-21 05:27] LABS: ALBUMIN 3.5 g/dL (3.5-5.0); ANION GAP 10 mEq/L (8-16); ASPARTATE AMINOTRANSFERASE 22 IU/L (17-59); BILIRUBIN,TOTAL 0.7 mg/dL (0.1-1.4); CALCIUM 8.6 mg/dL (8.5-10.4); CARBON DIOXIDE 26 mEq/l (22-31); CHLORIDE 107 mEq/L (97-110); CREATININE 0.8 mg/dL (0.7-1.3); GLOMERULAR FILTRATION RATE > 60; GLUCOSE 106 mg/dL (70-100); LACTATE DEHYDROGENASE 534 IU/L (313-618); MAGNESIUM 2.1 mg/dL (1.6-2.3); POTASSIUM 3.7 mEq/L (3.5-5.2); SODIUM 143 mEq/L (134-144)
[2016-11-21 07:28] VITALS: BP 155/80; PULSE 48; RESP 21; TEMP 97.7
--- NOTE | 2016-11-21 08:54 | CPEKG ---
Heart Rate: 45 RR Interval: 1333 P-R Interval: 196 QRSD Interval: 98 QT Interval: 464 QTC Interval: 402 P [place]: 50 QRS [place]: 11 T Wave [place]: 90 EKG Severity - ABNORMAL ECG - EKG Impression: SINUS BRADYCARDIA EKG Impression: NONSPECIFIC T ABNORMALITIES, LATERAL LEADS Electronically Signed By: Florencio Weston 21-Nov-2016 09:10:56
[2016-11-21] MEDS ORDERED: PRASUGREL HCL 10 MG TAB PO SCH (09:00)
[2016-11-21] MEDS ORDERED: ASPIRIN EC 325 MG TAB PO SCH (09:00)
[2016-11-21] MEDS: ESCITALOPRAM OXALATE 10 MG TAB PO SCH (09:27)
[2016-11-21] MEDS: PANTOPRAZOLE SODIUM 40 MG TAB PO SCH (09:27)
[2016-11-21] MEDS: FAMOTIDINE 20 MG TAB PO SCH (09:27)
[2016-11-21] MEDS: ASPIRIN EC 81 MG TAB PO SCH (09:36)
--- NOTE | 2016-11-21 11:04 | GDS ---
[f rep st] DISCHARGE SUMMARY DISCHARGE DIAGNOSES: 1. [place] Heart Association Class 3 dyspnea and [place] Cardiovascular Association Class 3 angina . 2. Coronary artery disease. 3. Pulmonary hypertension. 4. History of sleep apnea and nocturnal hypoxemia-difficult to treat. 5. Severe restless legs syndrome. 6. History of reactive airway disease. 7. Elevated D-dimer with pulmonary embolus ruled out by CT pulmonary angiogram. 8. Treated hyperlipidemia, well controlled. 9. Treated hypertension, well controlled. 10. Treated gastroesophageal reflux. 11. Previous abnormal high-resolution chest CT scan (January 19, 2015) suggesting hypersensitivity pneu monitis. 12. 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 13. History of nonsustained ventricular tachycardia. PROCEDURES: 1. Chest CT pulmonary angiogram demonstrating no evidence of pulmonary embolus, three-vessel coronar y artery calcification as well as aortic arch calcification, mild cardiomegaly. 2. Right and left heart catheterization with left ventricular and selective coronary angiography. 3. Intravascular ultrasound imaging, balloon angioplasty, and intracoronary stent placement utilizin g single drug-eluting stent in the proximal right coronary artery. HOSPITAL COURSE: This 75-year-old man with known coronary calcification with previous negative outpa tient workup was admitted with progressive low-level dyspnea and anginal equivalent which ultimately became class 4. D-dimer was elevated. CT pulmonary angiogram was negative. Therefore patient under went cardiac catheterization due to the rapid progressive nature of his symptoms and symptoms at rest . Right heart catheterization was performed due to predominance of dyspnea and question of pulmonary hypertension. The patient was found to have pulmonary hypertension with a pulmonary artery peak sys tolic pressure of approximately 52 mmHg. This was in the setting of a mean pulmonary capillary wedge pressure of 15 mmHg and a right atrial mean pressure of 7 mmHg. Left ventricular end-diastolic pres sure was 20 mmHg. Left ventricular systolic function is normal. Coronary angiography revealed moder ate LAD disease, mild circumflex disease and severe heavily calcified eccentric proximal right che ry stenosis just after a significant [place]. This was assessed by ultrasound and ulti mately treated with predilation utilizing a 3.5 mm balloon. Then a 4.0 mm x 20 mm synergy drug-eluti ng stent was placed with a 4.5 mm post dilation. There was an excellent result. The patient was rec overed overnight without complication. The procedure was performed by radial artery and brachial vei n approach without complication. The patient did have severe restless legs syndrome which has been p reviously diagnosed. DISCHARGE MEDICATIONS: Effient 10 mg p.o. daily (Plavix genetic testing is pending). Aspirin 81 mg daily. Atorvastatin 40 mg daily. Benazepril 40 mg daily. Mirapex 0.25 mg at bedtime. Omeprazole 2 0 mg daily. Lexapro 10 mg daily. Albuterol and Advair which had been previously prescribed by Dr. Soham Venegas, but patient had not been using on a regular basis. FOLLOWUP PLANS: Patient will be seen in our office in approximately 1 week for wound check and medic ation check. We will also likely consider echocardiogram depending on when his last echo had been pe rformed for further assessment of pulmonary pressures and right ventricular function. He has also be en asked to make a followup, sooner rather than later, with Dr. Bryson Venegas for further evaluation o f his inadequately controlled sleep apnea, nocturnal hypoxemia, and severe restless legs syndrome. F urthermore, he may require treatment of his reactive airway disease and possible followup of his prev iously abnormal high-resolution chest CT scan. /[id number]/MODL
[2016-11-23 15:30] LABS: 2C19S INTERPRETATION See Comments (())
== END 2016-11-21 10:49 | disposition home or self-care (01) | DRG 247 ==
LOC: F1N 21:18 → INTOOBSV 11-20 16:20 → OBSVTOIN 11-20 16:20 → F2W 11-20 17:13
PROVIDERS: ADMIT Internal Medicine; ATTEND Internal Medicine
PROC: B2151ZZ Fluoroscopy of Left Heart using Low Osmolar Contrast (ICD-10-PCS; principal; 2016-11-20)
PROC: B2111ZZ Fluoroscopy of Multiple Coronary Arteries using Low Osmolar Contrast (ICD-10-PCS; principal; 2016-11-20)
PROC: 027034Z Dilation of Coronary Artery, One Artery with Drug-eluting Intraluminal Device, Percutaneous Approach (ICD-10-PCS; principal; 2016-11-20)
PROC: 4A023N8 Measurement of Cardiac Sampling and Pressure, Bilateral, Percutaneous Approach (ICD-10-PCS; principal; 2016-11-20)
DX: I25.119 Atherosclerotic heart disease of native coronary artery with unspecified angina pectoris (principal); E78.5 Hyperlipidemia, unspecified; I27.2 Other secondary pulmonary hypertension; K21.9 Gastro-esophageal reflux disease without esophagitis; G25.81 Restless legs syndrome; J45.909 Unspecified asthma, uncomplicated; G47.33 Obstructive sleep apnea (adult) (pediatric); Z82.49 Family history of ischemic heart disease and other diseases of the circulatory system; Z96.651 Presence of right artificial knee joint
CPT/HCPCS: 81225-90; C1725; C1753; C1769; C1874; C1887; C9600; G0378; J1644; J2250; J3010; Q9967

== ENCOUNTER → 2017-02-06 | Outpatient (CLI) | payer OTHER | LOC: FCPNEURO 21:00 | PROVIDERS: ATTEND Psychiatry & Neurology Sleep Medicine | DX: G47.33 Obstructive sleep apnea (adult) (pediatric) (principal) ==

== ENCOUNTER → 2018-01-07 | Outpatient (CLI) | payer OTHER, MEDICARE | LOC: FIMAGING 11:46 | PROVIDERS: ATTEND Internal Medicine Critical Care Medicine | DX: J98.6 Disorders of diaphragm (principal); I27.29 Other secondary pulmonary hypertension; J45.909 Unspecified asthma, uncomplicated ==

== ENCOUNTER → 2018-09-16 | Outpatient (CLI) | payer OTHER, MEDICARE | LOC: BHFA 11:30 | PROVIDERS: ATTEND Physician Assistant | DX: R06.09 Other forms of dyspnea (principal); R00.1 Bradycardia, unspecified; R53.83 Other fatigue; I25.10 Atherosclerotic heart disease of native coronary artery without angina pectoris ==

== ENCOUNTER → 2018-09-25 | Outpatient (CLI) | payer OTHER, MEDICARE | LOC: BHFA 15:30 | PROVIDERS: ATTEND Internal Medicine Cardiovascular Disease | DX: R00.2 Palpitations (principal) ==

== ENCOUNTER → 2018-09-29 | Outpatient (CLI) | payer OTHER, MEDICARE | LOC: BHFA 13:00 | PROVIDERS: ATTEND Internal Medicine Interventional Cardiology | DX: R06.02 Shortness of breath (principal); I25.10 Atherosclerotic heart disease of native coronary artery without angina pectoris | CPT/HCPCS: 78452; 93017; A9500 ==

== ENCOUNTER → 2018-11-06 | Outpatient (CLI) | payer OTHER, MEDICARE | LOC: BHFA 14:00 | PROVIDERS: ATTEND Internal Medicine Cardiovascular Disease | DX: I47.2 Ventricular tachycardia (principal) ==

== ENCOUNTER 2018-11-07 06:57 | Day surgery (SDC) | payer OTHER, MEDICARE ==
[2018-11-07] MEDS ORDERED: FAMOTIDINE 20 MG TAB PO ONE (07:02)
[2018-11-07] MEDS ORDERED: DIAZEPAM 5 MG TAB PO ONE (07:02)
[2018-11-07] MEDS ORDERED: NS 1,000 ML IV ONE (07:02)
[2018-11-07] MEDS ORDERED: ASPIRIN EC 325 MG TAB PO ONE ×2 (07:02→07:37)
[2018-11-07] MEDS ORDERED: diphenhydrAMINE 25 MG CAP PO ONE ×2 (07:02→07:36)
[2018-11-07] MEDS ORDERED: FAMOTIDINE 20 MG TAB ONE (07:36)
[2018-11-07] MEDS ORDERED: DIAZEPAM 5 MG TAB ONE (07:37)
[2018-11-07] MEDS ORDERED: LIDOCAINE 1% 300 MG/30 ML SDV ONE (07:49)
[2018-11-07] MEDS ORDERED: fentaNYL 100 MCG/2 ML INJ ONE ×2 (07:50→09:42)
[2018-11-07] MEDS ORDERED: IOPAMIDOL (ISOVUE-370) 150 ML BTL IV ONE (07:50)
[2018-11-07] MEDS ORDERED: MIDAZOLAM 2 MG/2 ML VIAL ONE ×2 (07:50→09:37)
[2018-11-07 07:56] LABS: PLATELET COUNT 241 10^3/uL (150-400)
[2018-11-07 08:04] LABS: INR 1.07 (0.83-1.16); PROTIME(PATIENT) 14.1 SEC (12.0-15.0)
--- NOTE | 2018-11-07 08:34 | PDPROPOC ---
Sedation Plan of Care Sedation Plan of Care: vital signs stable, mental status noted, patient educated of risks, benefits, alternatives, patient can tolerate sedation ASA Classification: ASA 2 Planned drugs: fentanyl, midazolam Mallampati Score: Class 2 Mallampati Reference Image: Patient passed 3-3-2 rule?: Yes
--- NOTE | 2018-11-07 08:35 | PDHPUP ---
History & Physical Update H&P update statement: This history and physical update is based on an assessment of the patient which was completed after admission or registration (within 24 hours), but prior to the surgery/procedure. H&P update: H&P reviewed & patient examined, no change in patient's condition since H&P completed
[2018-11-07] MEDS ORDERED: LABETALOL HCL 5 MG/ML 20 ML MDV ONE (09:33)
[2018-11-07] MEDS ORDERED: ONDANSETRON 4 MG/2 ML VIAL IVP PRN (09:50)
[2018-11-07] MEDS ORDERED: NITROGLYCERIN 0.4 MG BTL SL PRN (09:50)
[2018-11-07] MEDS ORDERED: HYDROCODONE/APAP 5/325 TAB PO PRN (09:50)
[2018-11-07] MEDS ORDERED: ATROPINE SULFATE 1 MG/10 ML SYR IVP PRN (09:50)
[2018-11-07] MEDS ORDERED: OXYCODONE/APAP 5/325 TAB PO PRN (09:50)
--- NOTE | 2018-11-07 10:12 | CPIP ---
DATE OF PROCEDURE: 11/07/2018 PROCEDURE: 1. Coronary angiography. 2. Left ventriculography. INDICATION: 1. Known coronary artery disease, status post stenting of the right coronary artery in 11/2016. 2. Dyspnea on exertion concerning for an anginal equivalent. 3. Nonsustained ventricular tachycardia on monitoring. ACCESS: Patient was prepped and draped in sterile fashion. 1% lidocaine was used to anesthetize the right inguinal region. A 6-[place] introducer sheath was placed selectively into the right common fe moral artery via modified Seldinger technique. The 6-[place] introducer sheath was later exchanged fo r a 7-[place] Irish introducer sheath via exchange wire technique. CORONARY ANGIOGRAPHY: A 6-[place] JL4 was advanced to the left main coronary artery and images obtain ed. The left main coronary artery bifurcated into an LAD and circumflex coronary arteries. The left main coronary artery appeared normal. The left anterior descending coronary artery was diffusely di seased. The left anterior descending coronary artery had a discrete 40% stenosis in the mid to dista l vessel. The left anterior descending coronary artery gave rise to 3 diagonal branches. The diagon al branches were free of any significant disease. The circumflex coronary artery is a large vessel. The circumflex coronary artery is nondominant. The circumflex coronary artery gave rise to 3 OM bra nches. The circumflex coronary artery had mild diffuse disease throughout with no stenosis greater t thomas 20%. A 6-[place] no-torque right catheter was advanced to the right coronary artery and images ob tained. The right coronary artery is dominant. The right coronary artery was previously stented in the proximal segment. The previously placed stent was widely patent with no evidence of in-stent res tenosis. LEFT VENTRICULOGRAPHY: A 6-[place] pigtail catheter was advanced to the left ventricle and images obt ained. Left ventricle is normal size, had normal systolic function. The estimated ejection fraction is 60%. COMPLICATIONS: None. CONCLUSIONS: 1. Patent right coronary artery stent with no evidence of in-stent restenosis. 2. [id number] coronary artery disease without flow limitation. 3. Normal left ventricular systolic function. 4. Plan is for medical management. /[id number]/MODL
--- NOTE | 2018-11-07 17:40 | CPEKG ---
Test Reason : OPEN Blood Pressure : / mmHG Vent. Rate : 051 BPM Atrial Rate : 051 BPM P-R Int : 191 ms QRS Dur : 099 ms QT Int : 480 ms P-R-T Axes : 043 012 037 degrees QTc Int : 443 ms Sinus rhythm Confirmed by Bhaskar Hernández ([id number]) on 11/07/2018 5:40:40 PM Referred By: Confirmed By:Bhaskar Hernández
== END 2018-11-07 15:15 | disposition home or self-care (01) ==
LOC: FCATH 06:57
PROVIDERS: ATTEND Internal Medicine Cardiovascular Disease
PROC: B2151ZZ Fluoroscopy of Left Heart using Low Osmolar Contrast (ICD-10-PCS; principal; 2018-11-07)
PROC: B2111ZZ Fluoroscopy of Multiple Coronary Arteries using Low Osmolar Contrast (ICD-10-PCS; principal; 2018-11-07)
PROC: 4A023N7 Measurement of Cardiac Sampling and Pressure, Left Heart, Percutaneous Approach (ICD-10-PCS; principal; 2018-11-07)
DX: I25.10 Atherosclerotic heart disease of native coronary artery without angina pectoris (principal); R06.00 Dyspnea, unspecified; I47.2 Ventricular tachycardia
CPT/HCPCS: 93005; 93458; C1769; J1200; J1644; J2250; J3010; Q9967

== ENCOUNTER 2018-12-02 11:20 | Observation (INO) | payer OTHER, MEDICARE ==
[~2018-12-02 11:20] MED LIST: NS 1,000 ML IV ONE
[2018-12-02 11:52] LABS: PLATELET COUNT 214 10^3/uL (150-400)
[2018-12-02 12:05] LABS: INR 1.08 (0.83-1.16); PROTIME(PATIENT) 14.2 SEC (12.0-15.0)
[2018-12-02] MEDS ORDERED: LIDOCAINE 1% 300 MG/30 ML SDV ONE (12:53)
[2018-12-02] MEDS ORDERED: HEPARIN 10,000 UNIT/10 ML MDV (1,000 UNIT/ML) ONE (12:53)
[2018-12-02] MEDS ORDERED: BUPIVACAINE 0.75% 10 ML SDV ONE (12:54)
[2018-12-02] MEDS ORDERED: ISOPROTERENOL HCL/D5W 0.2 MG/50 ML BAG IV ONE (12:54)
--- NOTE | 2018-12-02 13:16 | PDGENHP ---
History & Physical Chief Complaint: NSVT History of Present Illness: Recent Holter monitor demonstrated a 21-beat run of wide-complex tachycardia with a fusion beat that is concerning for VT. Frequent ventricular ectopy on extended ECG monitor as well. Relevant Physical Exam: General: A&Ox4, no apparent distress. Respiratory: CTA. Cardiac: Regular S1, S2. Extremities: Pulses 2+ bilaterally, +LLE edema Cardiorespiratory Assessment: Proceed with diagnostic EP study as planned for today. Patient and verbalize understanding and are amenable to pacemaker and/or AICD if indicated and/or ablation if sustained arrhythmias are inducible.
--- NOTE | 2018-12-02 13:35 | PDANEPAE ---
ANE History of Present Illness SVT and ? VT s/f EP Study ANE Past Medical History - Cardiovascular History Hx Hypertension: Yes Hx Arrhythmias: Yes Hx Chest Pain: Yes Hx Coronary Artery / Peripheral Vascular Disease: No - Pulmonary History Hx COPD: No Hx Asthma/Reactive Airway Disease: Yes Hx Recent Upper Respiratory Infection: No Hx Oxygen in Use at Home: Yes Hx Sleep Apnea: Yes - Endocrine History Hx Diabetes: No ANE Review of Systems Review of Systems: - Exercise capacity Exercise capacity: >=4 METS ANE Patient History - Allergies Allergies/Adverse Reactions: No Known Allergies Allergy (Verified 04/22/16 16:50) - Home Medications Home medications: home medication list seen and reviewed Home Medications: Omeprazole 20 mg PO DAILY PRN 09/22/13 [Last Taken 11/30/18 08:00] Pramipexole Di-HCl [Mirapex 0.25 mg (*)] 0.25 mg PO HS 09/22/13 [Last Taken 21:00] Aspirin EC [Aspirin EC 81 mg (*)] 81 mg PO DAILY 11/19/16 [Last Taken 11/30/18 08:00] Atorvastatin Calcium [Lipitor 40 mg (*)] 40 mg PO HS 11/19/16 [Last Taken 21:00] Benazepril HCl [Lotensin] 40 mg PO HS 11/19/16 [Last Taken 12/01/18 21:00] Cholecalciferol Vit D3 [Vitamin D3 (*)] 1,000 units PO DAILY 11/07/18 [Last Taken 11/29/18 12:00] Ferrous Sulfate [Ferrous Sulf 325 MG (*)] 325 mg PO DAILY 11/07/18 [Last Taken 11/30/18 21:00] Latanoprost 0.005% [Xalatan 0.005% (*)] 1 drops EACHEYE HS 11/07/18 [Last Taken 12/01/18 21:00] Multivitamins [Multivitamin (*)] 1 each PO DAILY 11/07/18 [Last Taken 11/30/18 12:00] Vitamin B Complex [Vitamin B Complex (OTC)] 1 each PO DAILY 11/07/18 [Last Taken 11/30/18 08:00] amLODIPine BESYLATE [Norvasc 5 mg (*)] 5 mg PO DAILY 11/07/18 [Last Taken 08:00] Escitalopram Oxalate [Lexapro] 2.5 - 5 mg PO DAILY PRN 12/02/18 [Last Taken 22:00] - NPO status NPO Status: no food or drink >8 hours - Anes Hx Anes Hx: no prior problems - Smoking Hx Smoking Status: Never smoked - Alcohol Use Alcohol Use: None - Family Anes Hx Family Anes Hx: none ANE Labs/Vital Signs - Labs Result Diagrams: 12/02/18 11:11 12/02/18 11:11 - Vital Signs Height: 177.8 cm Weight: 81.647 kg ANE Physical Exam - Airway Neck exam: decreased ROM Mallampati Score: Class 2 Mouth exam: normal dental/mouth exam - Pulmonary Pulmonary: no respiratory distress - Cardiovascular Cardiovascular: regular rate and rhythym - ASA Status ASA Status: III ANE Anesthesia Plan Anesthesia Plan: general endotracheal anesthesia, MAC (GA with ETT vs Moderate sedation)
[2018-12-02] MEDS ORDERED: fentaNYL 100 MCG/2 ML INJ ONE (13:45)
[2018-12-02] MEDS ORDERED: PROPOFOL/EMULSION 500 MG/50 ML BOTTLE IV ONE ×3 (13:45→14:47)
[2018-12-02] MEDS ORDERED: ePHEDrine SULFATE 25 MG/5 ML SYR ONE (14:58)
--- NOTE | 2018-12-02 15:55 | CPEKG ---
Test Reason : OPEN Blood Pressure : / mmHG Vent. Rate : 046 BPM Atrial Rate : 046 BPM P-R Int : 182 ms QRS Dur : 101 ms QT Int : 501 ms P-R-T Axes : 054 -01 027 degrees QTc Int : 439 ms Sinus bradycardia Confirmed by Bhaskar Hernández ([id number]) on 12/02/2018 3:55:11 PM Referred By: Confirmed By:Bhaskar Hernández
[2018-12-02] MEDS ORDERED: ALBUTEROL 60 PUFFS/8 GM MDI IH PRN (15:59)
[2018-12-02] MEDS ORDERED: fentaNYL 100 MCG/2 ML INJ IVP PRN (16:00)
[2018-12-02] MEDS ORDERED: NS 500 ML IV PRN (16:00)
[2018-12-02] MEDS ORDERED: ALBUTEROL 3 ML DEYVIAL IH PRN (16:00)
[2018-12-02] MEDS ORDERED: NALOXONE HCL 0.4 MG/ML INJ IVP PRN (16:00)
[2018-12-02] MEDS ORDERED: PHENYLEPHRINE HCL 100 MCG/ML SYR IVP PRN (16:00)
[2018-12-02] MEDS ORDERED: DEXAMETHASONE 4 MG/ML VIAL IVP PRN (16:00)
[2018-12-02] MEDS ORDERED: ONDANSETRON 4 MG/2 ML VIAL IVP PRN (16:00)
[2018-12-02] MEDS ORDERED: ACETAMINOPHEN 500 MG TAB PO PRN (16:00)
--- NOTE | 2018-12-02 16:00 | POSTANESTH ---
Post Anesthetic Evaluation Cardiovascular Status: Normal, Stable Respiratory Status: Normal, Stable Level of Consciousness/Mental Status: Can Participate in Eval Pain Control: Adequate, Prn Tx Ordered Nausea/Vomiting Control: Adequate, Prn Tx Ordered Complications Possibly Related to Anesthesia: None Noted
[2018-12-02] MEDS ORDERED: PRAMIPEXOLE 0.25 MG TAB PO SCH (17:30)
[2018-12-02] MEDS ORDERED: BENAZEPRIL HCL 20 MG TAB PO SCH (21:00)
[2018-12-02] MEDS ORDERED: LATANOPROST 0.005% 2.5 ML OPHT DROPS EACHEYE SCH (21:00)
[2018-12-02] MEDS ORDERED: ATORVASTATIN CALCIUM 40 MG TAB PO SCH (21:00)
[2018-12-03 07:12] VITALS: BP 146/89
[2018-12-03] MEDS ORDERED: VITAMIN B COMPLEX 1 EA CAP/TAB PO SCH (09:00)
[2018-12-03] MEDS ORDERED: FERROUS SULFATE 325 MG TAB PO SCH (09:00)
[2018-12-03] MEDS ORDERED: ASPIRIN EC 81 MG TAB PO SCH (09:00)
[2018-12-03] MEDS ORDERED: PANTOPRAZOLE SODIUM 40 MG TAB PO PRN (09:00)
[2018-12-03] MEDS ORDERED: ESCITALOPRAM OXALATE 10 MG TAB PO PRN (09:00)
[2018-12-03] MEDS ORDERED: amLODIPine BESYLATE 5 MG TAB PO SCH (09:00)
[2018-12-03] MEDS ORDERED: MULTIVITAMINS 1 EACH TAB PO SCH (09:00)
[2018-12-03] MEDS ORDERED: CHOLECALCIFEROL VIT D3 1,000 UNITS TAB PO SCH (09:00)
--- NOTE | 2018-12-03 09:56 | CPEKG ---
Test Reason : OPEN Blood Pressure : / mmHG Vent. Rate : 047 BPM Atrial Rate : 047 BPM P-R Int : 183 ms QRS Dur : 098 ms QT Int : 444 ms P-R-T Axes : 029 -13 000 degrees QTc Int : 393 ms Sinus bradycardia Atrial premature complex Confirmed by Bhaskar Hernández ([id number]) on 12/03/2018 9:55:07 AM Referred By: Confirmed By:Bhaskar Hernández
--- NOTE | 2018-12-03 10:17 | EPPROC ---
Electrophysiology Procedure Note: Procedure date 12/02/18 DIAGNOSTIC ELECTROPHYSIOLOGIC STUDY Procedures performed: 1. Fluoroscopy 2. EP evaluation with RA/RV/LA pace/record, with arrhythmia induction 3. EP evaluation with RA/RV pace record, insert/reposition catheter, with arrhythmia induction 4. Programmed stimulation + pacing after IV drug INDICATION: Wide complex tachycardia PROCEDURE: Catheters & Anesthesia: The patient arrived in the Electrophysiology Laboratory in the fasting state. The right clavicular region, right groin, & left groin area were prepped & draped in the usual sterile manner. Dr. Jeri Magana administered anesthesia. Appropriate non-invasive blood pressure, pulse oximetry & end-tidal CO2 monitoring was established. All catheters were placed percutaneously using the modified Seldinger technique , and advanced into position under fluoroscopic guidance. One #7 [place]gr[place] deflectable octapolar electrode catheter was advanced to the His-bundle position via the left femoral vein (2mm spacing). One #7 [place] deflectable catheter with 10 pairs of electrodes was placed via the right femoral vein into the coronary sinus. Programmed stimulation was performed from the right atrium, right ventricle and coronary sinus (left atrium). Parahisian pacing demonstrated constant H-A interval with changing V-A intervals and stimulus-A intervals during capture and loss of capture of proximal RBB proving retrograde conduction over AV node. There was no antegrade accessory pathway conduction. Heparin was administered. No sustained reentrant tachycardia was induced during programmed stimulation at baseline or during graded doses of isoproterenol up to 4 mcg/min. No ventricular tachycardia was induced. 3 episodes of atrial fibrillation were induced, requiring cardioversion. 1 episode of sustained atrial flutter CL 180-200 ms was induced. The catheters were removed. Vascular access sheaths were removed in the EP lab after placing subcutaneous pursestring suture. The patient was transferred to the cardiovascular holding area in stable condition. There were no apparent complications. CONCLUSIONS 1. Normal sinus and AV node function. 2. No evidence of accessory AV pathway presence. 3. No inducible ventricular arrhythmia induced. 4. Sustained atrial fibrillation and atrial flutter induced. 5. No apparent complications. Patient Problems: Problems Problem Status Onset Atrial tachycardia Acute Osteoarthritis of ankle Acute Dyspnea Acute Chest pain Acute
--- NOTE | 2018-12-03 17:55 | GDS ---
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 Bhargav Hayes. ADMISSION DIAGNOSES: 1. Dyspnea on exertion. 2. Wide-complex tachycardia with a fusion beat. DISCHARGE DIAGNOSES: 1. Dyspnea on exertion. 2. Inducible atrial flutter and atrial fibrillation. No inducible ventricular arrhythmias. PROCEDURES PERFORMED DURING HOSPITALIZATION: 1. Diagnostic electrophysiology study. 2. Electrocardiogram. HOSPITAL COURSE: Patient presented December 02, 2018, for a diagnostic electrophysiology study in the setting of 21 second run of ventricular tachycardia on recent extended ECG monitor. There were no s ustained ventricular arrhythmias inducible during his electrophysiology study. He did have inducible sustained atrial fibrillation and atrial tachycardia. He had no intra procedure complications and h as done very well in the postprocedure setting. He has been ambulating around his room this morning without issue and he is appropriate and stable for discharge home today. PHYSICAL EXAMINATION: GENERAL: He is alert and oriented x4. No apparent distress. VITAL SIGNS: Bl ood pressure 124/67, heart rate 56, SpO2 93% on room air. Respiratory rate 12, temp 36.4 degrees Arabella sius. RESPIRATORY: Lungs are clear to auscultation without adventitious breath sounds. CARDIAC: Norm al S1, S2, no S3, S4, murmurs. Rhythm is regular. ABDOMEN: Normoactive bowel sounds times all 4 davida drants, no masses or tenderness. ABDOMEN: Soft, nontender. SKIN: [place], warm, dry without cyanosis, clubbing, or peripheral edema. EXTREMITIES: Left pursestring suture removed intact without evidence of hematoma, redness, oozing, swelling, or warmth. Pulses 2+ bilaterally, no edema. LABORATORY STUDIES: Drawn yesterday. CBC and BMP within normal limits. PROCEDURES: Electrophysiology study as mentioned above. DISCHARGE DISPOSITION: The patient will be discharged home in stable condition. He is under activit y restrictions as below. DISCHARGE MEDICATIONS: Please see discharge medication reconciliation sheet for full details. López clay note that we have made no medication changes during this hospitalization. DISCHARGE INSTRUCTIONS: Post electrophysiology study instructions reviewed in detail with patient an d his . We discussed activity restrictions including lifting no more than 10 pounds and avoidanc e of submerged bathing for 10 days. He will get up and walk around every 45 minutes for 45 days. We also reviewed bleeding precautions, monitoring for signs and symptoms of infection, and monitoring f or sustained arrhythmia. He will follow up with our clinic for a cardiopulmonary stress test for fur ther evaluation of his dyspnea, which still has an unclear etiology in the setting of yesterday's jose ctrophysiology study and his recent coronary angiography which have been unrevealing. At the time of discharge, patient verbalized understanding of all discharge instructions without questions or ana rns. He will follow up in clinic as scheduled and will contact the clinic with any new or concerning symptoms prior to his upcoming visit. Greater than 30 minutes spent on this discharge. /[id number]/MODL
== END 2018-12-03 10:30 | disposition home or self-care (01) ==
LOC: FSGY 11:20 → F2W 15:55
PROVIDERS: ADMIT Internal Medicine Cardiovascular Disease; ATTEND Internal Medicine Cardiovascular Disease
DX: R06.09 Other forms of dyspnea (principal); I47.1 Supraventricular tachycardia; I48.92 Unspecified atrial flutter; I48.91 Unspecified atrial fibrillation; J45.909 Unspecified asthma, uncomplicated; N40.0 Benign prostatic hyperplasia without lower urinary tract symptoms; I25.10 Atherosclerotic heart disease of native coronary artery without angina pectoris; K21.9 Gastro-esophageal reflux disease without esophagitis; G47.33 Obstructive sleep apnea (adult) (pediatric); I27.29 Other secondary pulmonary hypertension
CPT/HCPCS: 93005; 93620; 93621; 93623; C1731; J1644; J2704; J3010

== ENCOUNTER → 2018-12-02 | Day surgery (SDC) | payer OTHER, MEDICARE | LOC: FSGY 11:18 ==

== ENCOUNTER → 2019-01-12 | Outpatient (CLI) | payer OTHER, MEDICARE | LOC: FIMAGING 18:28 | PROVIDERS: ATTEND Orthopaedic Surgery Sports Medicine | DX: M25.511 Pain in right shoulder (principal) ==

== ENCOUNTER → 2019-01-17 | Outpatient (CLI) | payer OTHER, MEDICARE | LOC: FIMAGING 09:54 ==

== ENCOUNTER → 2019-01-23 | Outpatient (CLI) | payer OTHER, MEDICARE | LOC: BHFA 10:00 | PROVIDERS: ATTEND Internal Medicine Cardiovascular Disease | DX: R06.02 Shortness of breath (principal) ==

== ENCOUNTER → 2019-02-02 | Outpatient (CLI) | payer OTHER, MEDICARE | LOC: BHFA 10:00 | PROVIDERS: ATTEND Internal Medicine Cardiovascular Disease | DX: R06.02 Shortness of breath (principal); I25.10 Atherosclerotic heart disease of native coronary artery without angina pectoris ==